=== PATIENT | female | born 1955 | race Two or more races ===

== ENCOUNTER 2018-04-03 10:22 | Outpatient (CLI) | payer OTHER ==
[~2018-04-03 10:22] MED LIST: METOCLOPRAMIDE10 MG PO; PEPCID40 MG PO; SIMETHICONE80 MG PO
== END 2018-04-03 10:28 | disposition home or self-care (01) ==
LOC: SONOGRAMA 10:22
DX: E04.1 Nontoxic single thyroid nodule (principal); K80.80 Other cholelithiasis without obstruction; K81.0 Acute cholecystitis

== ENCOUNTER 2020-04-12 07:40 | Outpatient (CLI) | payer OTHER | END 2020-04-12 07:43 | disposition home or self-care (01) | LOC: SONOGRAMA 07:40 | PROVIDERS: ATTEND Family Medicine | DX: R10.84 Generalized abdominal pain (principal); R10.2 Pelvic and perineal pain ==

== ENCOUNTER 2020-04-12 10:42 | Outpatient (CLI) | payer OTHER | END 2020-04-12 11:05 | disposition home or self-care (01) | LOC: NUCLEAR 10:42 | PROVIDERS: ATTEND Family Medicine | DX: I65.23 Occlusion and stenosis of bilateral carotid arteries (principal) ==